=== PATIENT | male | born 2000 | race Caucasian/White ===

== ENCOUNTER 2022-02-28 13:47 | Emergency (ER) | payer OTHER ==
[~2022-02-28] VITALS: Ht 182.9 cm; Wt 78.0 kg
[2022-02-28 13:53] VITALS: BP 143/96
[2022-02-28] MEDS ORDERED: IBUPROFEN 400MG TABLET PO ONE (15:00)
== END 2022-02-28 15:35 | disposition home or self-care (01) ==
LOC: ER 13:47
DX: M54.50 Low back pain, unspecified (principal); V99.XXXA Unspecified transport accident, initial encounter; Y93.89 Activity, other specified; Y92.89 Other specified places as the place of occurrence of the external cause; Y99.8 Other external cause status
CPT/HCPCS: 99282